=== PATIENT | female | born 1945 | race Caucasian/White ===

== ENCOUNTER → 2019-09-28 | Outpatient (CLI) | payer MEDICARE ==
[2019-09-28 14:23] LABS: BASOPHILS % 0.4 % (0.0-1.0); EOSINOPHILS # (AUTO) 0.2 (0.0-0.4); EOSINOPHILS % 1.6 % (0.0-6.0); HEMATOCRIT 39.8 % (34.2-44.1); HEMOGLOBIN 12.5 g/dL (12.0-16.0); LYMPHOCYTES # (AUTO) 2.5 (1.0-3.2); LYMPHOCYTES % 24.7 % (18.0-39.1); MEAN CORPUSCULAR HEMOGLOBIN 28.6 pg (28-32); MEAN CORPUSCULAR HGB CONC 31.4 g/dL (31-35); MEAN CORPUSCULAR VOLUME 91.1 fL (81-99); MONOCYTES # (AUTO) 0.8 (0.2-0.8); NEUTROPHILS # (AUTO) 6.5 (2.1-6.9); NEUTROPHILS % 64.5 % (38.7-80.0); PLATELET COUNT 184 x10e3/uL (140-360); RED BLOOD COUNT 4.37 x10e6/uL (3.6-5.1); RED CELL DISTRIBUTION WIDTH 14.7 % (11.7-14.4)
== END ==
LOC: RAD 05:00 → EDSTATUS 10-07 11:00
PROVIDERS: ATTEND Internal Medicine
DX: Z01.818 Encounter for other preprocedural examination (principal); K92.1 Melena; I10 Essential (primary) hypertension; I63.9 Cerebral infarction, unspecified
CPT/HCPCS: 36415; 85025; 93005